=== PATIENT | male | born 1970 | race Caucasian/White ===

== ENCOUNTER → 2021-03-31 | Outpatient (REF) | payer BC ==
[2021-03-31 18:09] LABS: APPEARANCE, URINE CLEAR (CLEAR); BACTERIA, URINE AUTO NEGATIVE (NEGATIVE); BILIRUBIN, URINE AUTO NEGATIVE (NEGATIVE); BLOOD, URINE BLOOD NEGATIVE (NEGATIVE); COLOR, URINE YELLOW (YELLOW); GLUCOSE, URINE (UA) AUTO NEGATIVE (NEGATIVE); KETONE, URINE AUTO NEGATIVE (NEGATIVE); LEUKOCYTE ESTERASE, URINE AUTO NEGATIVE (NEGATIVE); MUCUS, URINE SMALL (NEGATIVE); NITRITE, URINE AUTO NEGATIVE (NEGATIVE); PROTEIN, URINE AUTO NEGATIVE (NEGATIVE); RBC, URINE AUTO 0 /HPF (0-3); SPECIFIC GRAVITY URINE AUTO 1.012 (1.002-1.035); SQUAMOUS EPITHELIAL CELL UR AU 0 /HPF (0-6); UROBILINOGEN, URINE AUTO 0.2 mg/dL (0.0-2.0); WBC, URINE AUTO 1 /HPF (0-3)
== END ==
LOC: M SMT 17:15
PROVIDERS: ATTEND Urology
DX: R39.198 Other difficulties with micturition (principal)

== ENCOUNTER 2021-04-22 09:56 | Day surgery (SDC) | payer BC ==
[~2021-04-22] VITALS: Ht 170.2 cm; Wt 90.9 kg
[~2021-04-22 09:56] MED LIST: CIPROFLOXACIN 400 MG in IV 1 EA IV ONE; DOXY100T27 PO; EZET1TAB96 PO; KETOROLAC 60MG 2ML VIAL As Ordered ONE; LIDOCAINE 2% 100MG/5ML SDV (FOR ANES.) As Ordered ONE; LR 1,000 ML IV ONE; ONDANSETRON 4MG/2ML VIAL As Ordered ONE; ZOLP10TA2 PO; dexameTHASONE 4 MG/ML 1ML VIAL (J1100 PER 1MG) As Ordered ONE; fentaNYL 100 MCG/2 ML INJECTION As Ordered ONE; propofoL 200 MG/20 ML VIAL As Ordered ONE
[2021-04-22] MEDS ORDERED: MIDAZOLAM INJ 2MG/2ML VIAL (J2250 PER 1MG) As Ordered ONE (09:57)
[2021-04-22] MEDS ORDERED: TADA5TAB (10:13)
[2021-04-22] MEDS ORDERED: EZET1TAB96 (10:13)
[2021-04-22] MEDS ORDERED: ZOLP10TA2 (10:13)
[2021-04-22] MEDS ORDERED: LIDOCAINE 5% OINT 30GM TUBE As Ordered ONE (10:41)
[2021-04-22] MEDS ORDERED: CIPR-249 PO (11:26)
[2021-04-22] MEDS ORDERED: ONDANSETRON 4MG/2ML VIAL IV PRN (11:45)
[2021-04-22] MEDS ORDERED: oxyCODONE 5MG TAB PO PRN (11:45)
[2021-04-22] MEDS ORDERED: MEPERIDINE INJ 25 MG/ML VIAL (J2175) IV PRN (11:45)
[2021-04-22] MEDS ORDERED: fentaNYL 100 MCG/2 ML INJECTION IV PRN (11:45)
[2021-04-22] MEDS ORDERED: LR 1,000 ML IV SCH (11:45)
[2021-04-22 12:25] VITALS: BP 125/59
== END 2021-04-22 12:40 | disposition home or self-care (01) ==
LOC: M SDC 09:56
PROVIDERS: ATTEND Urology
DX: R39.12 Poor urinary stream (principal); R97.20 Elevated prostate specific antigen [PSA]; N52.9 Male erectile dysfunction, unspecified; N40.1 Benign prostatic hyperplasia with lower urinary tract symptoms; G47.33 Obstructive sleep apnea (adult) (pediatric); Z79.899 Other long term (current) drug therapy; F32.9 Major depressive disorder, single episode, unspecified; Z88.2 Allergy status to sulfonamides
CPT/HCPCS: 52000; 55700; G0416; J0744; J1100; J1885; J2250; J2405; J3010